=== PATIENT | female | born 1945 | race Caucasian/White ===

== ENCOUNTER 2016-05-02 08:42 | Outpatient (CLI) | payer OTHER | END 2016-05-02 20:05 | disposition home or self-care (01) | LOC: SMA 08:42 | PROVIDERS: ATTEND Family Medicine | DX: Z12.31 Encounter for screening mammogram for malignant neoplasm of breast (principal) | CPT/HCPCS: 77067; G0202 ==

== ENCOUNTER 2017-07-25 10:36 | Outpatient (CLI) | payer OTHER | END 2017-07-25 18:40 | disposition home or self-care (01) | LOC: SMA 10:36 | PROVIDERS: ATTEND Family Medicine | DX: Z12.31 Encounter for screening mammogram for malignant neoplasm of breast (principal) | CPT/HCPCS: 77067 ==

== ENCOUNTER 2018-07-26 12:53 | Outpatient (CLI) | payer OTHER | END 2018-07-26 20:55 | disposition home or self-care (01) | LOC: SMA 12:53 | PROVIDERS: ATTEND Family Medicine | DX: Z12.31 Encounter for screening mammogram for malignant neoplasm of breast (principal) | CPT/HCPCS: 77067 ==

== ENCOUNTER 2019-10-06 08:37 | Outpatient (CLI) | payer OTHER | END 2019-10-06 20:31 | disposition home or self-care (01) | LOC: SMA 08:37 | PROVIDERS: ATTEND Family Medicine | DX: Z12.31 Encounter for screening mammogram for malignant neoplasm of breast (principal) | CPT/HCPCS: 77067 ==

== ENCOUNTER 2020-10-06 10:18 | Outpatient (CLI) | payer OTHER | END 2020-10-06 20:41 | disposition home or self-care (01) | LOC: SMA 10:18 | PROVIDERS: ATTEND Family Medicine | DX: Z12.31 Encounter for screening mammogram for malignant neoplasm of breast (principal) | CPT/HCPCS: 77067 ==

== ENCOUNTER 2023-01-22 10:00 | Day surgery (SDC) | payer OTHER ==
[~2023-01-22] VITALS: Ht 170.2 cm; Wt 83.0 kg
[2023-01-22] MEDS: CELECOXIB 100 MG CAPSULE PO ONE (08:51)
[2023-01-22] MEDS: GABAPENTIN 300 MG CAPSULE ONE (08:51)
[2023-01-22] MEDS: SCOPOLAMINE HYDROBROMIDE 1 MG PATCH .72 H (TRANSDERM-SCOP) TD ONE (08:51)
[2023-01-22] MEDS: ACETAMINOPHEN 500 MG TABLET PO ONE (08:51)
[~2023-01-22 10:00] MED LIST: CEFAZOLIN SOD 2 GM in D5W 50 ML IV ONE; GABAPENTIN 300 MG CAPSULE PO ONE; oxyCODONE HCL 10 MG TAB.ER.12H PO ONE
[2023-01-22] MEDS ORDERED: SCOPOLAMINE HYDROBROMIDE 1 MG PATCH .72 H (TRANSDERM-SCOP) TD ONE (11:07)
[2023-01-22] MEDS ORDERED: ACETAMINOPHEN 500 MG TABLET ONE (11:07)
[2023-01-22] MEDS ORDERED: CELECOXIB 100 MG CAPSULE ONE (11:07)
[2023-01-22] MEDS ORDERED: GABAPENTIN 300 MG CAPSULE ONE (11:12)
[2023-01-22 11:23] VITALS: BP_SYST 137; PULSE 75; RESP 18; TEMP 98.9; O2SAT 98
== END 2023-01-22 15:30 | disposition home or self-care (01) ==
LOC: EDSTATUS 10:00 → SDS 10:00
PROVIDERS: ATTEND Student in an Organized Health Care Education/Training Program
DX: M16.11 Unilateral primary osteoarthritis, right hip (principal); I10 Essential (primary) hypertension; E78.5 Hyperlipidemia, unspecified; K21.9 Gastro-esophageal reflux disease without esophagitis; M06.9 Rheumatoid arthritis, unspecified; E11.40 Type 2 diabetes mellitus with diabetic neuropathy, unspecified; F32.A Depression, unspecified; Z88.1 Allergy status to other antibiotic agents; Z88.8 Allergy status to other drugs, medicaments and biological substances; Z53.8 Procedure and treatment not carried out for other reasons
CPT/HCPCS: 87081; 82962; J0690; J7060

== ENCOUNTER 2023-02-01 06:30 | Inpatient (IN) | payer OTHER ==
[~2023-02-01] VITALS: Ht 170.2 cm; Wt 83.0 kg
[2023-02-01] MEDS ORDERED: CELECOXIB 100 MG CAPSULE ONE (06:42)
[2023-02-01] MEDS ORDERED: ACETAMINOPHEN 500 MG TABLET ONE (06:42)
[2023-02-01] MEDS ORDERED: oxyCODONE HCL 10 MG TAB.ER.12H PO ONE ×2 (06:43→07:00)
[2023-02-01] MEDS ORDERED: GABAPENTIN 300 MG CAPSULE ONE (06:43)
[2023-02-01] MEDS ORDERED: SCOPOLAMINE HYDROBROMIDE 1 MG PATCH .72 H (TRANSDERM-SCOP) TD ONE ×2 (06:43→07:00)
[2023-02-01] MEDS ORDERED: GABAPENTIN 300 MG CAPSULE PO ONE (07:00)
[2023-02-01] MEDS ORDERED: CELECOXIB 100 MG CAPSULE PO ONE (07:00)
[2023-02-01] MEDS ORDERED: ACETAMINOPHEN 500 MG TABLET PO ONE (07:00)
[2023-02-01] MEDS ORDERED: CEFAZOLIN SOD 2 GM in D5W 50 ML IV ONE (07:30)
[2023-02-01] MEDS ORDERED: ONDANSETRON HCL 4 MG/2 ML VIAL ONE (07:40)
[2023-02-01] MEDS ORDERED: PROPOFOL 200MG/ 20ML VIAL (DIPRIVAN) IV ONE (07:40)
[2023-02-01] MEDS ORDERED: BUPIVACAINE /PF 0.25% 30 ML VIAL INJ ONE (07:40)
[2023-02-01] MEDS ORDERED: NS 1000 ML IV.SOLN IV ONE (07:40)
[2023-02-01] MEDS ORDERED: MORPHINE SULFATE 10MG/10ML PF AMP ONE (07:40)
[2023-02-01] MEDS ORDERED: VANCOMYCIN HCL 1000 MG/VIAL IV ONE (07:40)
[2023-02-01] MEDS ORDERED: TRANEXAMIC ACID 1,000 MG/10 ML VIAL ONE (07:40)
[2023-02-01] MEDS ORDERED: SEVOFLURANE 15 MIN GAS INH ONE (07:40)
[2023-02-01] MEDS ORDERED: MIRA25TA PO (08:22)
[2023-02-01] MEDS ORDERED: NOR10 PO (08:22)
[2023-02-01] MEDS ORDERED: CEL20 PO (08:22)
[2023-02-01] MEDS ORDERED: TIRZ5PEN INJ (08:22)
[2023-02-01] MEDS ORDERED: EYE HEALTH (08:22)
[2023-02-01] MEDS ORDERED: OMEP-268 PO (08:22)
[2023-02-01] MEDS ORDERED: LISI40TA13 PO (08:22)
[2023-02-01] MEDS ORDERED: FEXO180T94 PO (08:22)
[2023-02-01] MEDS ORDERED: MULT-1117 PO (08:22)
[2023-02-01] MEDS ORDERED: ETOD200C4 PO (08:22)
[2023-02-01] MEDS ORDERED: VIT D PO (08:22)
[2023-02-01] MEDS ORDERED: FLUO60SO3 TP (08:22)
[2023-02-01] MEDS ORDERED: PREVAGEN PO (08:22)
[2023-02-01] MEDS ORDERED: LIP20 PO (08:22)
[2023-02-01] MEDS ORDERED: PSYL3.4P5 PO (08:22)
[2023-02-01] MEDS ORDERED: MYCOLOG15 TP (08:22)
[2023-02-01] MEDS ORDERED: NALOXONE HCL 0.4 MG/ML AMP (NARCAN) IVP PRN ×3 (10:15→10:45)
[2023-02-01] MEDS ORDERED: HYDROmorphone 1 MG/ML INJ. CARTRIDGE IVP PRN ×4 (10:15→11:00)
[2023-02-01] MEDS ORDERED: ACETAMINOPHEN I.V. 1000 MG 100 ML IV ONE (10:15)
[2023-02-01] MEDS ORDERED: ONDANSETRON HCL 4 MG/2 ML VIAL IVP PRN ×2 (10:15→11:45)
[2023-02-01] MEDS ORDERED: BISACODYL 10 MG/SUPPOSITORY RC PRN (10:45)
[2023-02-01] MEDS ORDERED: METOCLOPRAMIDE HCL 10 MG/2 ML VIAL IVP PRN (10:45)
[2023-02-01] MEDS ORDERED: LACTULOSE 20 GM/30 ML UDC PO PRN (10:45)
[2023-02-01] MEDS ORDERED: NALOXONE HCL 2 MG/2 ML SYR IVP PRN (10:45)
[2023-02-01] MEDS ORDERED: DIPHENHYDRAMINE HCL 25 MG CAPSULE PO PRN (10:45)
[2023-02-01] MEDS ORDERED: traMADol HCL HCL 50 MG TABLET (ULTRAM) PO PRN (11:00)
[2023-02-01] MEDS ORDERED: LORATADINE 10 MG TABLET PO PRN (11:00)
[2023-02-01] MEDS ORDERED: oxyCODONE HCL 5 MG TABLET PO PRN ×2 (11:00)
[2023-02-01 12:18] VITALS: BP_SYST 101; PULSE 68; RESP 14; TEMP 97.7
[2023-02-01 12:20] VITALS: BP_SYST 97; PULSE 64; RESP 16; TEMP 97.5; O2SAT 95
[2023-02-01] MEDS: ACETAMINOPHEN 500 MG TABLET PO SCH ×2 (14:04→21:41)
[2023-02-01] MEDS: ceFAZolin SODIUM 2 GM in D5W 50 ML IV SCH ×2 (14:05→21:40)
[2023-02-01] MEDS: KETOROLAC TROMETHAMINE 10 MG TABLET (TORADOL) PO SCH ×2 (14:24→21:43)
[2023-02-01 16:22] VITALS: BP_SYST 95; PULSE 67; RESP 16; TEMP 97.7; O2SAT 96
[2023-02-01 19:02] VITALS: BP_SYST 102; PULSE 72; RESP 16; TEMP 98.2; O2SAT 95
[2023-02-01 20:00] VITALS: BP_SYST 100; PULSE 68; RESP 16; TEMP 97.5; O2SAT 90; O2SAT 96
[2023-02-01 20:10] VITALS: O2SAT 96
[2023-02-01] MEDS: SENNOSIDES/DOCUSATE SODIUM 1 TAB TABLET(SENOKOT-S) PO SCH (21:40)
[2023-02-02] VITALS (8 sets, daily range): BP systolic 107–142; PULSE 72–98; RESP 14–20; TEMP 97.3–98.2; O2SAT 96–100
[2023-02-02] MEDS: ceFAZolin SODIUM 2 GM in D5W 50 ML IV SCH (06:19)
[2023-02-02] MEDS: ACETAMINOPHEN 500 MG TABLET PO SCH ×3 (06:20→20:35)
[2023-02-02] MEDS: KETOROLAC TROMETHAMINE 10 MG TABLET (TORADOL) PO SCH (06:20)
[2023-02-02 06:43] LABS: BASOPHILS % (AUTO) 0.2 % (0.0-2.0); HEMATOCRIT 24.8 % (36-48); HEMOGLOBIN 8.3 g/dL (12.0-16.0); LYMPHOCYTES # (AUTO) 0.7 K/uL (1.0-5.5); LYMPHOCYTES % (AUTO) 4.8 % (20.5-51.5); MEAN CORPUSCULAR HEMOGLOBIN 30 pg (27-31); MEAN CORPUSCULAR HGB CONC 34 % (32-36); MEAN CORPUSCULAR VOLUME 89 fL (79.0-98.0); MONOCYTES # (AUTO) 1.9 K/uL (0.0-1.0); MONOCYTES % (AUTO) 11.9 % (1.7-9.3); NEUTROPHILS # (AUTO) 13.1 K/uL (1.8-7.7); NEUTROPHILS % (AUTO) 83.1 % (40.0-70.0); PLATELET COUNT (AUTO) 216 K/uL (130-430); RED BLOOD CELL COUNT(AUTO) 2.79 MIL/uL (4.2-6.2); RED CELL DISTRIBUTION WIDTH 13.2 % (9.0-15.0); WHITE BLOOD COUNT (AUTO) 15.7 K/uL (4.8-10.8)
[2023-02-02 06:47] LABS: ALANINE AMINOTRANSFERASE 7 U/L (12-78); ALBUMIN 2.6 g/dL (3.4-4.8); ANION GAP 6 (5-15); ASPARTATE AMINOTRANSFERASE 32 U/L (10-37); CALCIUM 8.4 mg/dL (8.4-11.0); CARBON DIOXIDE 25 mmol/L (23-29); CHLORIDE 100 mmol/L (98-107); CREATININE 1.17 mg/dL (0.55-1.30); GLUCOSE 114 mg/dL (74-106); SODIUM SERUM 131 mmol/L (136-145); TOTAL BILIRUBIN 0.3 mg/dL (0.0-1.0); TOTAL PROTEIN, SERUM 5.8 g/dL (6.4-8.3); UREA NITROGEN, BLOOD 24 mg/dL (8-21)
[2023-02-02] MEDS: SENNOSIDES/DOCUSATE SODIUM 1 TAB TABLET(SENOKOT-S) PO SCH ×2 (08:47→20:34)
[2023-02-02] MEDS: ASPIRIN 81 MG TAB.CHEW PO SCH ×2 (08:47→20:35)
[2023-02-02] MEDS: CELECOXIB 200 MG CAPSULE PO SCH ×2 (11:27→23:29)
[2023-02-02] MEDS ORDERED: TAMSULOSIN HCL 0.4 MG CAP PO ONE ×2 (12:30→15:00)
[2023-02-02] MEDS ORDERED: TAMSULOSIN HCL 0.4 MG CAP ONE (14:21)
[2023-02-03] MEDS: ACETAMINOPHEN 500 MG TABLET PO SCH (05:40)
[2023-02-03 08:00] VITALS: O2SAT 99
[2023-02-03] MEDS ORDERED: TAMSULOSIN HCL 0.4 MG CAP PO SCH ×2 (09:00)
[2023-02-03] MEDS: ASPIRIN 81 MG TAB.CHEW PO SCH (09:57)
[2023-02-03] MEDS: SENNOSIDES/DOCUSATE SODIUM 1 TAB TABLET(SENOKOT-S) PO SCH (09:57)
[2023-02-03 11:46] VITALS: BP_SYST 117; PULSE 64; RESP 16; TEMP 97; O2SAT 98
[2023-02-03 12:34] VITALS: BP_SYST 120; PULSE 97; RESP 17; TEMP 97.9; O2SAT 97
== END 2023-02-03 14:00 | disposition home or self-care (01) | DRG 470 ==
LOC: SMU 06:30
PROVIDERS: ADMIT Student in an Organized Health Care Education/Training Program; ATTEND Student in an Organized Health Care Education/Training Program
PROC: 0SR90JZ Replacement of Right Hip Joint with Synthetic Substitute, Open Approach (ICD-10-PCS; principal; 2023-02-01 07:30)
DX: M16.11 Unilateral primary osteoarthritis, right hip (principal)
CPT/HCPCS: 36415; 72170-TC; 76000; 80053; 82962; 83051; 85025; 86886; 86900; 86901; 88304; 88311; 96379; 97110-GP; 97116-GP; 97530-GP; A4649; C1713; C1776; J0690; J2274; J2405; J2704; J3370; J3490; J7030; J7060